=== PATIENT | female | born 1945 | race Caucasian/White ===

== ENCOUNTER → 2016-10-18 | Outpatient (CLI) | payer MEDICARE, OTHER ==
--- NOTE | 2016-10-19 10:22 | RSPPFT ---
DATE OF PROCEDURE: 10/18/16 COMMENTS: Spirometry with FVC of 1.7 predicted 2.9, FEV1 of 1.4 predicted 2.0, FEV1/FVC ratio 82% predicted 70%. Post-bronchodilator FVC increases to 2.5 and FEV1 to 1.9. Air trapping is present with RV at 2.6 predicted 2.0. DLCO is within the predicted range. IMPRESSION: Although the patient has some responsiveness to acutely inhaled bronchodilator and some air trapping is present implying some obstructive lung defect, the flow volume loop is less than optimal and this interpretation should be regarded with caution and correlate with the history.
== END ==
LOC: HRSP 12:14
PROVIDERS: ATTEND Internal Medicine Cardiovascular Disease
DX: R06.02 Shortness of breath (principal)
CPT/HCPCS: 94060; 94726; 94729